=== PATIENT | male | born 1995 | race African-American/Black ===

== ENCOUNTER 2017-10-01 23:57 | Inpatient (IN) | payer OTHER, MEDICAID ==
[2017-10-02] MEDS ORDERED: ONDANSETRON HCL 4 MG/2 ML VIAL
[2017-10-02] MEDS ORDERED: MORPHINE SULFATE 4 MG/ML INJ
[2017-10-02] MEDS ORDERED: PROPOFOL 200 MG/20 ML AMP ×2 (00:02→00:50)
[2017-10-02 00:13] LABS: I-STAT BLOOD UREA NITROGEN 9 MG/DL (5-21); I-STAT CHLORIDE 101 MMOL/L (102-111); I-STAT GLUCOSE 132 MG/DL (68-110); I-STAT HEMOGLOBIN (CALC.) 14.6 G/DL (13.0-17.0); I-STAT POTASSIUM 3.8 MMOL/L (3.6-5.0); I-STAT SODIUM 139 MMOL/L (137-144)
[2017-10-02 00:14] LABS: AUTOMATED NEUTROPHIL # 12.4 TH/MM3 (1.8-7.7); BASOPHIL # 0.1 TH/MM3 (0-0.2); BASOPHIL % 0.3 % (0.0-2.0); EOSINOPHIL # 0.1 TH/MM3 (0-0.4); EOSINOPHIL % 0.6 % (0.0-4.0); HEMOGLOBIN 14.2 GM/DL (13.0-17.0); LYMPH % 31.9 % (9.0-44.0); LYMPHOCYTE # 6.2 TH/MM3 (1.0-4.8); MEAN CELL VOLUME 92.5 FL (80.0-100.0); MEAN CORPUSCULAR HEMOGLOBIN 30.6 PG (27.0-34.0); MEAN CORPUSCULAR HGB CONC 33.1 % (32.0-36.0); MEAN PLATELET VOLUME 8.8 FL (7.0-11.0); MONO % 3.8 % (0.0-8.0); MONOCYTE # 0.8 TH/MM3 (0-0.9); NEUT % 63.4 % (16.0-70.0); PLATELET COUNT 200 TH/MM3 (150-450); RED BLOOD COUNT 4.65 MIL/MM3 (4.50-5.90); RED CELL DISTRIBUTION WIDTH 14.1 % (11.6-17.2); WHITE BLOOD COUNT 19.6 TH/MM3 (4.0-11.0)
[2017-10-02 00:16] LABS: HEMO FLAGS AUTO DIFF
[2017-10-02] MEDS ORDERED: SODIUM CHLOR 0.9% 1000 ML INJ 1,000 ML IV (00:17)
[2017-10-02] MEDS ORDERED: HYDROmorphone HCL PF 0.5 MG/0.5 ML SYRINGE ×2 (00:20→00:21)
[2017-10-02 00:24] LABS: APTT (PATIENT) 21.9 SEC (24.3-30.1)
[2017-10-02] MEDS ORDERED: NALOXONE HCL 0.4 MG/ML AMP IV PUSH (00:30)
[2017-10-02] MEDS ORDERED: Post-op Orders (for Pharmacy) XX (00:30)
[2017-10-02] MEDS ORDERED: SODIUM CHLORIDE 0.9% FLUSH 10 ML FLUSH IV FLUSH (00:30)
[2017-10-02] MEDS ORDERED: ONDANSETRON HCL 4 MG/2 ML VIAL IV PUSH (00:30)
[2017-10-02] MEDS: IOHEXOL 350 MG/ML 10 ML VIAL (for RAD DIAG) IVCONTRAST (00:44)
[2017-10-02 00:48] LABS: BANDS 9 % (0-6); EOSINOPHILS 1 % (0-4); LYMPHOCYTES 30 % (9-44); METAMYELOCYTES 2 % (0-1); MONOCYTES 5 % (0-8); NEUTROPHIL # MANUAL DIFF 12.5 TH/MM3 (1.8-7.7); POLYS (SEG NEUTROPHILS) 53 % (16-70); SCAN/DIFF FINAL DIFF MANUAL; WBC DIFF SAMPLE 100
[2017-10-02 00:49] LABS: PLATELET ESTIMATE SMEAR NORMAL (NORMAL); PLATELET MORPHOLOGY NORMAL (NORMAL)
[2017-10-02 01:25] LABS: AMPHETAMINE, URINE NEG (NEG); BARBITURATES, URINE NEG (NEG); BENZODIAZEPINE,URINE NEG (NEG); CANNABINOIDS, URINE POS (NEG); COCAINE, URINE NEG (NEG)
[2017-10-02] MEDS: LACTATED RINGER'S 1000 ML INJ 1,000 ML IV ×3 (01:33→13:39)
[2017-10-02] MEDS: MORPHINE SULFATE 2 MG/ML INJ IV PUSH (01:50)
[2017-10-02] MEDS ORDERED: SODIUM CHLORID 0.9% 500 ML IV (02:00)
[2017-10-02] MEDS ORDERED: CHLORHEXIDINE GLUCONATE 2 % 1 PACK (2 CLOTHS) TOPICAL (02:00)
[2017-10-02] MEDS ORDERED: POVIDONE IODINE 5% (ANTISEPSIS KIT) 4 APPLICATIONS EACH NARE (02:00)
[2017-10-02] MEDS: METHOCARBAMOL 500 MG TAB PO ×3 (05:40→21:33)
[2017-10-02] MEDS: ceFAZolin 2 GM PREMIX 50 ML IV ×2 (07:26→21:23)
[2017-10-02] MEDS: GENTAMICIN/SOD CHL 80 MG/100 ML IV (07:27)
[2017-10-02] MEDS ORDERED: LACTULOSE SYRUP 20 GM/30 ML CUP PO (07:30)
[2017-10-02] MEDS: SODIUM CHLORIDE 0.9% FLUSH 10 ML FLUSH IV FLUSH ×2 (07:33→21:00)
[2017-10-02] MEDS: LIDOCAINE 2%/EPINEPHrine 1:100,000 20ML MDV OTHER (07:45)
[2017-10-02] MEDS: DOCUSATE SODIUM 50 MG/SENNA 8.6 MG TAB PO ×2 (08:29→21:22)
[2017-10-02] MEDS: POLYETHYLENE GLYCOL 17 GM PKG PO (08:29)
[2017-10-02] MEDS: BACITRACIN TOP OINT 15 GM TUBE TOP ×2 (09:00→21:00)
[2017-10-02] MEDS: LACTATED RINGER'S 1000 ML IV (11:25)
[2017-10-02] MEDS ORDERED: ACETAMINOPHEN 1000 MG/100 ML 100 ML IV (11:39)
[2017-10-02] MEDS ORDERED: ONDANSETRON HCL 4 MG/2 ML VIAL IV (12:00)
[2017-10-02] MEDS ORDERED: PROPOFOL 200 MG/20 ML AMP IV (12:00)
[2017-10-02] MEDS ORDERED: LIDOCAINE HCL 1% PF 5 ML SYRINGE OTHER (12:00)
[2017-10-02] MEDS ORDERED: KETOROLAC TROMETHAMINE 30 MG/ML (IVP) VIAL IV PUSH (12:00)
[2017-10-02] MEDS ORDERED: HYDROmorphone HCL PF 2 MG/ML VIAL (12:17)
[2017-10-02] MEDS ORDERED: ceFAZolin INJ 1,000 MG VIAL IV (13:22)
[2017-10-02] MEDS: GENTAMICIN 80 MG PREMIX 100 ML IV (13:23)
[2017-10-02] MEDS: GENTAMICIN SULFATE 80 MG/2 ML VIAL (13:24)
[2017-10-02] MEDS ORDERED: DO NOT ADM ANY ANTICOAGULANT DRUGS (14:12)
[2017-10-02] MEDS: oxyCODONE/ACETAMINOPHEN 5 MG/325 MG TAB PO ×2 (17:40→21:22)
[2017-10-03] MEDS: LACTATED RINGER'S 1000 ML INJ 1,000 ML IV ×2 (00:20→01:07)
[2017-10-03] MEDS: ceFAZolin 2 GM PREMIX 50 ML IV ×2 (04:26→12:00)
[2017-10-03] MEDS: METHOCARBAMOL 500 MG TAB PO ×2 (05:52→17:47)
[2017-10-03 07:02] LABS: AUTOMATED NEUTROPHIL # 5.4 TH/MM3 (1.8-7.7); BASOPHIL % 0.3 % (0.0-2.0); EOSINOPHIL # 0.1 TH/MM3 (0-0.4); HEMATOCRIT 29.2 % (39.0-51.0); HEMO FLAGS DIFF FINAL; HEMOGLOBIN 9.8 GM/DL (13.0-17.0); LYMPH % 16.5 % (9.0-44.0); LYMPHOCYTE # 1.2 TH/MM3 (1.0-4.8); MEAN CELL VOLUME 91.8 FL (80.0-100.0); MEAN CORPUSCULAR HEMOGLOBIN 30.7 PG (27.0-34.0); MEAN CORPUSCULAR HGB CONC 33.5 % (32.0-36.0); MEAN PLATELET VOLUME 8.9 FL (7.0-11.0); MONOCYTE # 0.5 TH/MM3 (0-0.9); NEUT % 75.2 % (16.0-70.0); PLATELET COUNT 111 TH/MM3 (150-450); RED BLOOD COUNT 3.18 MIL/MM3 (4.50-5.90); WHITE BLOOD COUNT 7.2 TH/MM3 (4.0-11.0)
[2017-10-03 07:30] LABS: ANION GAP 8 MEQ/L (5-15); BICARBONATE 26.6 MEQ/L (21.0-32.0); CALCIUM 8.2 MG/DL (8.5-10.1); CHLORIDE 106 MEQ/L (98-107); CREATININE 0.77 MG/DL (0.60-1.30); GLOMERULAR FILTRATION RATE 156 ML/MIN (>89); GLUCOSE,RANDOM 90 MG/DL (74-106); POTASSIUM 4.1 MEQ/L (3.5-5.1); SODIUM (NA) 141 MEQ/L (136-145)
[2017-10-03 07:31] LABS: BLOOD UREA NITROGEN 7 MG/DL (7-18)
[2017-10-03] MEDS: POLYETHYLENE GLYCOL 17 GM PKG PO (07:47)
[2017-10-03] MEDS: DOCUSATE SODIUM 50 MG/SENNA 8.6 MG TAB PO (07:47)
[2017-10-03] MEDS: oxyCODONE/ACETAMINOPHEN 5 MG/325 MG TAB PO ×2 (07:48→17:47)
[2017-10-03] MEDS: SODIUM CHLORIDE 0.9% FLUSH 10 ML FLUSH IV FLUSH (09:00)
[2017-10-03] MEDS: BACITRACIN TOP OINT 15 GM TUBE TOP (09:00)
[2017-10-03] MEDS ORDERED: oxyCODONE/ACETAMINOPHEN 10 MG/325 MG TAB PO (09:00)
== END 2017-10-03 19:20 | disposition home health service (06) | DRG 908 ==
LOC: NEPI 23:57 → NEDA 10-02 00:25 → N06A 10-02 01:19
PROC: 0KDB0ZZ Extraction of Left Lower Arm and Wrist Muscle, Open Approach (ICD-10-PCS; principal; 2017-10-02 12:56)
PROC: 0JQH3ZZ Repair Left Lower Arm Subcutaneous Tissue and Fascia, Percutaneous Approach (ICD-10-PCS; 2017-10-02 12:56)
PROC: 0SSBXZZ Reposition Left Hip Joint, External Approach (ICD-10-PCS; 2017-10-02 12:56)
PROC: 09Q1XZZ Repair Left External Ear, External Approach (ICD-10-PCS; 2017-10-02 12:56)
DX: S51.822A Laceration with foreign body of left forearm, initial encounter (principal); S27.321A Contusion of lung, unilateral, initial encounter; S73.035A Other anterior dislocation of left hip, initial encounter; S06.0X9A Concussion with loss of consciousness of unspecified duration, initial encounter; S01.312A Laceration without foreign body of left ear, initial encounter; V49.9XXA Car occupant (driver) (passenger) injured in unspecified traffic accident, initial encounter; Y92.410 Unspecified street and highway as the place of occurrence of the external cause
CPT/HCPCS: 27250; 70450; 71045; 71260; 72125; 72170; 73090; 74177; 80048; 80307; 85007; 85025; 85027; 85610; 85730; 86850; 86900; 86901; 90471; 94150; 96374; 96375; 97162-GP; 99152; 99153; 99291; 99291-25; J1170